=== PATIENT | female | born 1980 | race Caucasian/White ===

== ENCOUNTER 2018-01-08 15:20 | Emergency (ER) | payer BC ==
--- NOTE | 2018-01-08 15:34 | UC ---
Respiratory Complaint HPI - HPI Summary HPI Summary: 37 y/o female presents to the urgent care c/o productive cough w/ yellowish phlegm for the past 2 weeks. Symptoms started w/ the common cold, nasal congestion and clear nasal discharge. However symptoms have worsen w/ the days and now she hasn't been able to sleep well and feels fatigue. She has fever and chills at the beginning of symptoms. She also states she had some hives in her lower legs and arms about 2 days ago which resolved w/ Benadryl PO. Pt has not taking any medication to alleviate cough. pt denies fever now, SOB, wheezing, chest pain, abdominal pain, N/V/D. LMP:12/10/2017. Pt requests test. Pt exposed to niece w/ pneumonia. - History of Current Complaint Stated Complaint: COUGH Time Seen by Provider: 01/08/18 15:32 Hx Obtained From: Patient Onset/Duration: Gradual Onset, Lasting Weeks - 2 weeks, Still Present, Worse Since - 2 days Timing: Intermittent Episodes Severity Initially: Mild Severity Currently: Moderate Pain Intensity: 0 Pain Scale Used: 0-10 Numeric Character: Cough: Productive, Sputum Description: - yellowish Aggravating Factors: Recumbent Position Alleviating Factors: Nothing Associated Signs And Symptoms: Positive: Fever - at the beginning of symptoms, URI, Nasal Congestion, Sinus Discomfort. Negative: Wheezing - Risk Factors Pulmonary Embolism Risk Factors: Negative Cardiac Risk Factors: Negative Pseudomonas Risk Factors: Negative Tuberculosis Risk Factors: Negative - Allergies/Home Medications Allergies/Adverse Reactions: Allergies Allergy/AdvReac Type Severity Reaction Status Date / Time cefaclor [From [facility]] Allergy Unknown Verified 01/08/18 15:39 Reaction Details Penicillins Allergy Unknown Verified 01/08/18 15:39 Reaction Details Sulfa (Sulfonamide Allergy Unknown Verified 01/08/18 15:39 Antibiotics) Reaction Details Home Medications: Home Medications Multivitamin [Multivitamins] 1 cap PO DAILY 01/08/18 [History Confirmed 01/08/18 ] PMH/Surg Hx/FS Hx/Imm Hx Previously Healthy: Yes - Pt denies PMHX - Surgical History Surgical History: Yes Surgery Procedure, Year, and Place: ear tubes - Family History Family History: Dyslipidemia - Social History Occupation: Employed Full-time Lives: With Family Substance Use Type: None Review of Systems All Other Systems Reviewed And Are Negative: Yes Constitutional: Positive: Fatigue Skin: Positive: Negative Eyes: Positive: Negative ENT: Positive: Nasal Discharge, Sinus Congestion, Sinus Pain/Tenderness Respiratory: Positive: Cough - productive w/ yellowish phlegm Cardiovascular: Positive: Negative Gastrointestinal: Positive: Negative Genitourinary: Positive: Negative Motor: Positive: Negative Neurovascular: Positive: Negative Musculoskeletal: Positive: Negative Neurological: Positive: Negative Psychological: Positive: Negative Is Patient Immunocompromised?: No Physical Exam - Summary Physical Exam Summary: Vital Signs Reviewed: Yes General: well developed, well nourished female sitting in the examining table w/ o any apparent distress Eyes: Positive: Conjunctiva Clear - PERRLA, EOMI, fundi grossly normal ENT: Positive: Normal ENT inspection, Hearing grossly normal, Pharynx normal, Nasal congestion - edematous and erythematous nasal mucosa, Nasal drainage - yellowish drainage, TMs normal. Negative: Tonsillar swelling, Tonsillar exudate Neck: Positive: Supple, Nontender, No Lymphadenopathy Respiratory: no orthopnea or dyspnea. Able to speak in full sentences, no retractions or accessory muscle use, no tripod position, stridor, or head bobbing. Positive breath sounds bilaterally. diffuse scattered rhonchi on b/L lungs, no wheezing, no crackles or rales. Cardiovascular: Positive: RRR, No Murmur, Pulses Normal, Brisk Capillary Refill Abdomen Description: Positive: Nontender, No Organomegaly, Soft. Negative: CVA Tenderness (R), CVA Tenderness (L) Bowel Sounds: Positive: Present Musculoskeletal Exam: Normal Musculoskeletal: Positive: Strength Intact, ROM Intact, No Edema Neurological Exam: Normal Psychological Exam: Normal Skin Exam: Normal Triage Information Reviewed: Yes Respiratory Course/Dx - Course Course Of Treatment: 37 y/o female presents to the urgent care c/o productive cough w/ yellowish phlegm for the past 2 weeks. Symptoms started w/ the common cold, nasal congestion and clear nasal discharge. However symptoms have worsen w / the days and now she hasn't been able to sleep well and feels fatigue. She has fever and chills at the beginning of symptoms. She also states she had some hives in her lower legs and arms about 2 days ago which resolved w/ Benadryl PO. Pt has not taking any medication to alleviate cough. pt denies fever now, SOB, wheezing, chest pain, abdominal pain, N/V/D. LMP:12/10/2017. Pt requests test. Pt was expose to niece w/ pneumonia. Hx obtained. Pt w/ B/L posterior lungs w/ scattered rhonchi on examination. O2Sat: 99%. Chest X-ray ordered: impression: small patchy infiltrate at the base of theleft lung most consistent w/ pneumonia. Pt w/ PNC and sulfa allergies. Pt is hemodynamcially stable. Pt Rx Doxycycline PO and albuterol Inhaler and advised to take Robitussin or Delsym PO to alleviate cough. Pt instructed to go to the emergency room immediately if her symptoms r worsens despite taking antibiotics. Also advised to f/u w/ PCP in 2-3 days to make sure symptoms are improving. D/C instructions explained. All questions were answered at patient satisfaction. Pt understood and agreed w/ plan of care. There were no further complaints or concerns. Pt left the clinic hemodynamically stable, A&OX3 - Differential Dx/Diagnosis Differential Diagnosis/HQI/PQRI: Asthma, Bronchitis, Influenza, Laryngitis, Lower Resp Infection, Sinusitis, Other - pneumonia Provider Diagnosis: Pneumonia, community acquired, Cough Discharge - Sign-Out/Discharge Documenting (check all that apply): Patient Departure - d/c home All imaging exams completed and their final reports reviewed: Yes - Discharge Plan Condition: Stable Disposition: HOME Prescriptions: Albuterol HFA INHALER* [Ventolin HFA Inhaler*] 1 - 2 puff INH Q6H PRN #1 mdi PRN Reason: bronchospasm DOXYcycline CAP(*) [DOXYcycline 100MG CAP(*)] 100 mg PO BID #20 cap Patient Education Materials: Community Acquired Pneumonia (ED) Forms: *Work Release Referrals: Inge Cordova MD [Primary Care Provider] - 3 Days Additional Instructions: 1-Please take full course of antibiotic to avoid resistance. 2-Take Robitussin PO or Delsym PO and use the albuterol inhaler to alleviate cough. Increase fluid intake, rest and eat well. 3- If symptoms do not improve or worsen or your develop SOB with fever and severe cough please go immediately to the ER further evaluation and treatment. 4-See your PCP in 2-3 days to check your symptoms are improving - Billing Disposition and Condition Condition: STABLE Disposition: Home
[2018-01-08 15:38] VITALS: BP 119/67
== END 2018-01-08 17:00 | disposition home or self-care (01) ==
LOC: UCEAST 15:20
DX: J18.9 Pneumonia, unspecified organism (principal); R05 Cough; Z88.1 Allergy status to other antibiotic agents; Z88.0 Allergy status to penicillin; Z88.2 Allergy status to sulfonamides
CPT/HCPCS: 71046; 84702; 99202; G0463

== ENCOUNTER 2018-05-19 09:10 | Day surgery (SDC) | payer BC ==
--- NOTE | 2018-05-19 09:38 | ED ---
Abdominal Pain/Female - HPI Summary HPI Summary: Patient is a 37-year-old female who presents emergency department for further quadrant abdominal pain. Patient states she started with abdominal discomfort about a week ago and pain worsened right lower quadrant over the last 2 days. Pain is constant and is worse with lying flat. Patient denies associated symptoms of fevers, chills, nausea, vomiting, diarrhea, constipation, hematuria , dysuria, vaginal discharge or bleeding. Patient denies past medical history. Symptoms are moderate in severity. No current modifying factors. - History of Current Complaint Chief Complaint: EDAbdPain Stated Complaint: WORRIED I MAY HAVE APPENDICITIS PER PT Time Seen by Provider: 05/19/18 09:15 Hx Obtained From: Patient Hx Last Menstrual Period: 12/10/17 Pain Intensity: 5 Allergies/Adverse Reactions: Allergies Allergy/AdvReac Type Severity Reaction Status Date / Time cefaclor [From Ceclor] Allergy Unknown Verified 05/19/18 09:13 Reaction Details Penicillins Allergy Unknown Verified 05/19/18 09:13 Reaction Details Sulfa (Sulfonamide Allergy Unknown Verified 05/19/18 09:13 Antibiotics) Reaction Details Home Medications: Home Medications Cholecalciferol (Vitamin D3) [Vitamin D3] 1,000 unit PO DAILY 05/19/18 [History Confirmed 05/19/18] Desogestrel-Ethinyl Estradiol [Enskyce 28 Tablet] 1 tab PO DAILY 05/19/18 [ History Confirmed 05/19/18] PMH/Surg Hx/FS Hx/Imm Hx Previously Healthy: Yes Endocrine/Hematology History: Denies: Hx Diabetes, Hx Thyroid Disease Cardiovascular History: Denies: Hx Hypertension Respiratory History: Denies: Hx Asthma, Hx Chronic Obstructive Pulmonary Disease (COPD) GI History: Denies: Hx Ulcer History: Denies: Hx Kidney Infection, Other Problems/Disorders Psychiatric History: Denies: Hx Anxiety, Hx Depression, Other Psychiatric Issues/Disorders - Cancer History Cancer Type, Location and Year: denies - Surgical History Surgery Procedure, Year, and Place: ear tubes Infectious Disease History: No Infectious Disease History: Denies: Hx Hepatitis, Hx Human Immunodeficiency Virus (HIV), Traveled Outside the [place] in Last 30 Days - Family History Known Family History: Positive: Non-Contributory Family History: Dyslipidemia - Social History Occupation: Employed Full-time Lives: Alone Alcohol Use: Daily Alcohol Amount: 1 drink/ night Substance Use Type: Reports: None Hx Tobacco Use: No Smoking Status (MU): Never Smoked Tobacco Review of Systems Constitutional: Negative Negative: Fever, Chills Eyes: Negative ENT: Negative Cardiovascular: Negative Respiratory: Negative Positive: Abdominal Pain. Negative: Vomiting, Diarrhea, Nausea Genitourinary: Negative Negative: dysuria, discharge, frequency, flank pain, hematuria Neurological: Negative All Other Systems Reviewed And Are Negative: Yes Physical Exam Triage Information Reviewed: Yes Vital Signs On Initial Exam: Initial Vitals Temp Pulse Resp BP Pulse Ox 97.4 F 92 14 123/82 100 05/19/18 09:12 05/19/18 09:12 05/19/18 09:12 05/19/18 09:12 05/19/18 09:12 Vital Signs Reviewed: Yes Appearance: Positive: Well-Appearing - Pt. lying in bed in NAD. Pleasant. Skin: Positive: Warm, Dry Head/Face: Positive: Normal Head/Face Inspection Eyes: Positive: Normal, EOMI Neck: Positive: Supple Respiratory/Lung Sounds: Positive: Clear to Auscultation, Breath Sounds Present Cardiovascular: Positive: Normal, RRR Abdomen Description: Positive: Other: - Abd. is soft with moderate tenderness to RLQ. No CVA tenderness bilaterally. Neurological: Positive: Normal, CN Intact II-III Psychiatric: Positive: Affect/Mood Appropriate Diagnostics - Vital Signs Vital Signs Temp Pulse Resp BP Pulse Ox 05/19/18 09:27 85 99 05/19/18 09:12 97.4 F 92 14 123/82 100 - Laboratory Result Diagrams: 05/19/18 10:09 05/19/18 10:09 Lab Statement: Any lab studies that have been ordered have been reviewed, and results considered in the medical decision making process. Abdominal Pain Fem Course/Dx - Course Course Of Treatment: Pt. presenting for ongoing lower abd. pain. She is afebrile with stable VS. Pt. declines pain medication. Given worsening pain will obtain labs and ct scan for further evaluation. Labs show elevation in WBC and CRP. Negative . CT scan shows acute appendicitis without abscess or perforation. Surgery consulted. 1230 Dr. Castro in the OR and I spoke with her nurse who will relay the message. Pt. examined by surgical PA, Mario Michele. Plan is to OR. - Diagnoses Differential Diagnosis: Positive: Appendicitis, Constipation, Ectopic , Ovarian Cyst, Pelvic Inflammatory Disease Provider Diagnoses: Appendicitis Discharge - Sign-Out/Discharge Documenting (check all that apply): Patient Departure Patient Received Moderate/Deep Sedation with Procedure: No - Discharge Plan Condition: Stable Disposition: ADMITTED TO [facility] - Billing Disposition and Condition Condition: STABLE Disposition: Admitted to [facility]
[2018-05-19 10:21] LABS: ABS Basophils 0 10^3/ul (0-0.2); ABS Eosinophils 0 10^3/ul (0-0.6); ABS Lymphocytes 1.8 10^3/ul (1.0-4.8); ABS Monocytes 1.3 10^3/ul (0-0.8); ABS Neutrophils 8.2 10^3/ul (1.5-7.7); ABS Nucleated RBC 0 10^3/ul; Eosinophil % 0.4 %; Hematocrit 37 % (33-41); Hemoglobin 12.6 g/dL (12.0-16.0); Lymphocyte % 15.8 %; Mean Corpuscular HGB Conc 34 g/dL (31-36); Mean Corpuscular Hemoglobin 32 pg (27-31); Mean Corpuscular Volume 96 fL (80-97); Mean Platelet Volume 8.6 fL (7.4-10.4); Nucleated Red Blood Cells % 0; Platelet Count 235 10^3/uL (150-450); Red Blood Count 3.89 10^6 /uL (3.70-4.87); Red Cell Distribution Width 13 % (10.5-15); White Blood Count 11.4 10^3/uL (3.5-10.8)
[2018-05-19 10:36] LABS: ALT 9 U/L (7-52); AST 15 U/L (13-39); Albumin 4.2 g/dL (3.2-5.2); Albumin/Globulin Ratio 1.4 (1-3); Alkaline Phosphatase 55 U/L (34-104); Blood Urea Nitrogen 6 mg/dL (6-24); C Reactive Protein 91.42 mg/L (<8.01); CO2 Carbon Dioxide 25 mmol/L (22-32); Calcium 9.4 mg/dL (8.6-10.3); Chloride 107 mmol/L (101-111); EGFR African American 105.2 (>60); Globulin 3.1 g/dL (2-4); Glucose 99 mg/dL (70-100); Sodium 138 mmol/L (135-145); Total Protein 7.3 g/dL (6.4-8.9)
[2018-05-19 10:39] LABS: Anion Gap 6 mmol/L (2-11); Potassium 5.1 mmol/L (3.5-5.0)
[2018-05-19 10:41] LABS: HCG Pregnancy < 0.60 mIU/mL
[2018-05-19] MEDS ORDERED: Iohexol 300* (CONTRAST) 10 ML SDV IV ONE (11:40)
[2018-05-19 12:15] LABS: Urine Appearance Cloudy; Urine Bacteria Absent (Absent); Urine Bilirubin Negative (Negative); Urine Blood 2+ (Negative); Urine Color Yellow; Urine Glucose Negative (Negative); Urine Ketones Trace (Negative); Urine Nitrite Negative (Negative); Urine Protein Negative (Negative); Urine Red Blood Cell 2+(6-10/hpf) (Absent); Urine Specific Gravity 1.015 (1.010-1.030); Urine Squamous Epithelial Cell Present (Absent); Urine Urobilinogen Negative (Negative); Urine White Blood Cell Trace(0-5/hpf) (Absent)
[2018-05-19] MEDS ORDERED: NS 0.9% 1000 ML** 1,000 ML IV ONE (13:24)
[2018-05-19] MEDS ORDERED: Clindamycin 900 MG/D5W BAG(*) 900 MG/50 ML BAG IVPB ONE (13:51)
[2018-05-19] MEDS ORDERED: Famotidine IV* 10 MG/ML 2 ML (20 mg) IV ONE (13:51)
[2018-05-19] MEDS ORDERED: Gentamicin ADULT (*) 40 MG/ML VIAL (2 ML VIAL = 80 MG) IVPB ONE (13:52)
[2018-05-19] MEDS ORDERED: Lactated Ringers 1000 ML Bag* 1,000 ML IV SCH (14:00)
[2018-05-19] MEDS ORDERED: Bupivacaine 0.25% EPI 200,000* 30 ML SDV ONE (14:14)
[2018-05-19] MEDS ORDERED: fentaNYL* 50 MCG/ML 2 ML VIAL (100 MCG VIAL) ONE (14:23)
[2018-05-19] MEDS ORDERED: Midazolam* 1 MG/ML 5 ML VIAL (5 MG) ONE (14:23)
[2018-05-19] MEDS ORDERED: Clindamycin 900 MG IVPREMIX(* 900 MG/50 ML SDV IV ONE (14:24)
[2018-05-19] MEDS ORDERED: Famotidine IV* 10 MG/ML 2 ML (20 mg) ONE (14:24)
[2018-05-19] MEDS ORDERED: Gentamicin ADULT (*) 250 MG in NS 0.9% 100 ML* 100 ML IVPB ONE (14:30)
--- NOTE | 2018-05-19 14:58 | HP ---
Amended report to enter cosigning physician. CC: Dr. Inge Cordova* ADMISSION HISTORY AND PHYSICAL: DATE OF ADMISSION: 05/19/18 ATTENDING SURGEON: Dr. Lisandro Moffett* (dictated by LUIS ANTONIO You). CHIEF COMPLAINT: Abdominal pain. HISTORY OF PRESENT ILLNESS: This is a generally healthy 37-year-old female, who beginning on Tuesday while at work felt a "weird pain" in her right lower quadrant when she was getting up from a stool. This seemed to go away, but over the next couple of days, she has experienced intermittent, maybe 3 times daily similar pains that were worse with movement. Her pain also seemed to increase at night. She was awakened last night at 2 a.m. with pain, but was able to get back to sleep. She did go to work this morning, but has had persistent low level discomfort in the right lower quadrant. At different times , she has felt hot and sweaty, but has not had measured fever. She denies nausea or vomiting. She is a bit anorexic, but has otherwise been eating normally through last evening. Her last bowel movement was this morning and described as normal. She has not had any suspect food ingestion or sick contacts. She has not had any similar prior symptoms. No prior abdominal surgeries. PAST MEDICAL HISTORY: Unremarkable for any significant past or present medical problems. She was treated for pneumonia 3 to 4 months ago with total resolution. Her only surgery was tympanostomy tubes, uncomplicated. CURRENT MEDICATIONS: control pill and the following supplements: 1. Vitamin D3 1000 International Units once daily. 2. Vitamin B12 500 mcg once daily. 3. Multivitamin once daily. ALLERGIES: PENICILLIN, CECLOR, and SULFA (all unspecified childhood reaction). FAMILY HISTORY: Negative for anesthesia problems, bleeding or clotting disorders. SOCIAL HISTORY: The patient lives with her partner. She has 3 children. 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 She denies use of tobacco. She drinks on average 1 to 2 drinks per day. She does smoke marijuana a few times a week, but denies any other recreational drug use. REVIEW OF SYSTEMS: General: No recent constitutional symptoms or acute illnesses other than described in the HPI. Her weight has been stable. HEENT: No problems reported. Cardiovascular: No chest pain, hypertension, history of heart murmur. Respiratory: No history of asthma. She was prescribed albuterol in conjunction with the pneumonia treatment. No cough or shortness of breath. GI: As above per HPI. : No dysuria, gross hematuria or increased frequency. SECOND MILLER: She is up to date within the past year for Pap smear and pelvic exam both reportedly normal as well as breast exam. She has not yet had a baseline mammogram. Endocrine: No diabetes or thyroid dysfunction. Remaining review of systems is negative. PHYSICAL EXAMINATION GENERAL: Well-nourished, well-developed female in no acute distress. She appears comfortable, sitting up and reading. VITAL SIGNS: Height 5 feet 4 inches, weight 118 pounds, temperature 97.4, blood pressure 119/74, pulse 80, respirations 14, room air saturation 98%. HEENT: Pupils are equal, round, and reactive. EOMs intact. Oropharynx: Mucous membranes moist. No intraoral lesions. Teeth in good repair. NECK: No lymphadenopathy, thyromegaly, or masses. LUNGS: Clear to auscultation. No rales or wheezes. HEART: Regular rate and rhythm. No murmur noted. ABDOMEN: Flat, nondistended. Bowel sounds present; soft with well-localized tenderness in the right lower quadrant and a palpable mass just medial to the anterior superior iliac spine. The remainder of the abdomen is soft, nontender , and without palpable masses or organomegaly. There is no guarding, rebound, or referred tenderness. BACK: No spinous process or CVA tenderness. EXTREMITIES: No edema. NEUROLOGICAL: Grossly intact. SKIN: Warm and dry. No suspicious rashes or lesions. DIAGNOSTIC STUDIES/LAB DATA: White blood cell count 11,400 without significant shift, hemoglobin 12.6. CRP is elevated at 91. Liver function tests are normal. HCG is negative. Urinalysis is remarkable for 2+ blood. CT scan of the abdomen and pelvis with contrast was reviewed showing an inflammatory mass in the region of the appendix. The radiologist describes an enlarged appendix with a diameter of 1.1 cm. There is no evidence of free fluid or abscess. IMPRESSION: Acute appendicitis. PLAN: Laparoscopic appendectomy. Case was discussed with Dr. Moffett who will be the attending surgeon. He will see the patient for confirmation of findings and plan. Plan is for laparoscopic appendectomy. LUIS ANTONIO YOU [id number]/[facility] #: [id number] [facility]ENTERHarrison
[2018-05-19] MEDS ORDERED: Rocuronium* 10 MG/ML VIAL ONE (15:02)
[2018-05-19] MEDS ORDERED: Succinylcholine* 20 MG/ML 10 ML VIAL ONE (15:04)
[2018-05-19] MEDS ORDERED: Propofol* 10 MG/ML 20 ML BTL ONE (15:04)
[2018-05-19] MEDS ORDERED: DiMENhydriNATE IV* 50 MG/ML VIAL ONE (15:04)
[2018-05-19] MEDS ORDERED: Dexamethasone IV* 4 MG/ML 1 ML (4 MG) ONE (15:04)
[2018-05-19] MEDS ORDERED: Lidocaine 2% PF * 5 ML VIAL ONE (15:04)
[2018-05-19] MEDS ORDERED: Ondansetron INJ* 2 MG/ML VIAL ONE (15:04)
[2018-05-19] MEDS ORDERED: Ketorolac INJ* 30 MG/ML 1 ML VIAL ONE (15:04)
[2018-05-19] MEDS ORDERED: Sugammadex * 200 MG/2 ML VIAL IV PUSH ONE (15:20)
--- NOTE | 2018-05-19 15:37 | BRIEFOPN ---
Brief Operative Note - Surgery Procedures: Procedures Pre-OP Diagnoses: acute appendicitis Post-op Diagnosis: same Procedure: Laparoscopic appendectomy Surgeon: Zuhair Asst: LIVAN Vargas Anethesia: JASMINA EBL: minimal IVF: crystalloid Specimen: appendix Drains: none
[2018-05-19] MEDS ORDERED: DiMENhydriNATE IV* 50 MG/ML VIAL IV PUSH PRN (17:18)
[2018-05-19] MEDS ORDERED: Naloxone* 0.4 MG/ML 1 ML VIAL IV PRN (17:18)
[2018-05-19] MEDS ORDERED: Acetaminophen TAB* 325 MG PO PRN (17:18)
[2018-05-19 17:25] VITALS: BP 108/69
--- NOTE | 2018-05-20 00:12 | OP ---
CC: Dr. Inge Cordova * DATE OF OPERATION: 05/19/18 - [facility] DATE OF : 80 SURGEON: Lisandro Moffett MD EVENT SPECIALIST FOOD DEMONSTRATOR: LUIS ANTONIO Vargas student. ANESTHESIOLOGIST: Dr. Castañeda. ANESTHESIA: General anesthesia. PRE-OP DIAGNOSIS: Acute appendicitis. POST-OP DIAGNOSIS: Acute appendicitis. OPERATIVE PROCEDURE: Laparoscopic appendectomy. ESTIMATED BLOOD LOSS: Minimal blood loss. FLUIDS: Minimal crystalloid fluids given. SPECIMEN: Appendix. DESCRIPTION OF PROCEDURE: The patient was identified in the preoperative area. H and P was dictated by LUIS ANTONIO You; case was discussed with him. The patient was examined and images and labs were reviewed and I agree with diagnosis of acute appendicitis and recommend laparoscopic appendectomy. I outlined the details of the procedure going over the risks, benefits and alternatives to the patient. We spoke about the possible complication, which include but not limited to bleeding, infection, abscess formation, injury to adjacent organs, need for additional surgery and need for open surgery. The patient signed consent. She was marked, taken to the operating room, placed on the operating table in supine position. Preoperative antibiotics were given. Sequential devices were placed on bilateral lower extremities. General anesthesia was induced. The patient's abdomen was prepped and draped in standard surgical fashion and a time-out was performed. An umbilical incision was made. The skin edges were elevated and a Veress needle inserted into the abdominal cavity, which was then allowed to insufflate to a pressure of 15 mmHg. The patient tolerated the insufflation well. The Veress needle was then removed. Then, a 12-mm optical port was then inserted through the umbilical incision. Laparoscope was inserted and there was no evidence of injury from the trocar insertion. Review of the abdomen showed free fluid, this was thin yellowish serous fluid over the liver and in the pelvis. Additional trocars were placed in the following positions: 5 mm in the suprapubic and 5 mm in the left lower quadrant. Table was repositioned, view the uterus showed normal appearing uterus. Left and right ovaries were intact without lesion. The appendix was identified, it was elongated, but without any significant inflammatory process except possibly at the tip. We ran the small bowel from the terminal ileum approximately 100 cm and found no lesion. Gallbladder appeared intact as did the stomach. There were no liver lesions. Next, the peritoneum of the mesoappendix was taken with a cautery until we can isolate the appendiceal artery. The appendix was also isolated at its base and a 45-mm ayala NAWAF stapling device was fired across this through healthy tissue. There was some oozing at staple line, but otherwise showed intact kimberly. The appendiceal artery was then doubly clipped and ligated and the appendix was removed through the umbilical port site, taking it within this trocar first before removing it. The appendix did not open up during any of this time. Next, we reviewed the staple line, there was some oozing and this was controlled with two additional clips. We again looked around the abdomen, did not find any other lesions. The trocar was removed under direct vision and after the abdomen was allowed to 7collapse and the umbilical trocar site was closed with a fascial layer with an 0 Polysorb suture in a simple fashion and all 3 skin incisions were reapproximated with 4-0 Monocryl subcuticular sutures , Steri-Strips and sterile dressing was applied. The patient tolerated the procedure well, was transferred to PACU in stable condition for planned discharge home. [id number]/[facility] #: [id number] [place]
== END 2018-05-19 17:27 | disposition home or self-care (01) ==
LOC: ED 09:10 → OR 16:36
PROVIDERS: ATTEND Surgery
DX: K35.80 Unspecified acute appendicitis (principal); R10.31 Right lower quadrant pain
CPT/HCPCS: 36415; 74177; 80053; 81003; 81015; 84702; 85025; 86140; 87086; 88304; 96374; 96375; 99283; C1776; J0330; J1100; J1240; J1580; J1885; J2250; J2405; J2704; J3010; Q9967